=== PATIENT | female | born 1940 | race Caucasian/White ===

== ENCOUNTER 2017-07-07 21:29 | Observation (INO) ==
[2017-07-08] MEDS ORDERED: Ipratropium/Albuterol Neb 3 ML IH PRN (00:10)
[2017-07-08] MEDS: Acetaminophen 325 MG TABLET PO PRN ×2 (01:07→20:00)
[2017-07-08] MEDS ORDERED: Albuterol 2.5 MG/3 ML NEBULIZER IH PRN (02:12)
[2017-07-08] MEDS ORDERED: Naloxone 0.4 MG/ML INJ IVP PRN (02:12)
--- NOTE | 2017-07-08 02:22 | Internal Med History&Physical ---
Date of Encounter: 07/08/17 Time of Encounter: 01:30 Internal Medicine - H&P: HPI Chief complaint: cough, wheeze, SOB Admitted From: Hospital to Hospital Transfer Plans for Post Hospital Care: Home History of present illness: Ms. Correia is a 77 year old female who presented to [facility] ER tonight with complaints of coughing, wheezing, and shortness of breath. She was found to have acute exacerbation of COPD and was admitted to hospitalist service here at [facility]. Upon my assessment of the patient, she is audibly wheezing and having some mild respiratory distress. She feels a little better than her initial presentation in the ER. She states she has been dealing with this COPD flareup for the last 3-4 weeks and has been on 3 rounds of Levaquin antibiotics without relief. Her last hospital stay for COPD was about a year and a half ago. She states she has had some subjective fevers but no chills or night sweats. She has had pronounced coughing and wheezing and worsening dyspnea. Despite her severe COPD , she continues to smoke every day. She denies any chest pain, but she has had some palpitations and racing heart beats. She denies any recent ill contacts. Past Med Surg Social Fam HX - Past Medical History Attestation: Yes The following information was validated with the patient. Source: patient, old records reviewed Medical history: COPD, hyperlipidemia, hypertension Psychiatric history: no psych history - Past Surgical History Surgical History: hysterectomy - Social History Smoking Status: Current every day smoker Packs per day: 1 Smokeless Tobacco Status: No Alcohol use: none Drug use: none Current living situation: Home - Independent Activity Level: Independent ambulation Recent Out of Country Travel Within the Last 8 Weeks: No - Family History Mother History Unknown: Yes Father History Unknown: Yes - Additional Family History Additional family history: unknown; patient adopted Internal Medicine - H&P: Meds Albuterol Neb [Proventil Neb] 2.5 mg IH TID 07/07/17 [History] Albuterol Sulfate [Proair Hfa] 2 puff IH Q4H PRN 07/07/17 [History] Amlodipine Besylate 5 mg PO DAILY 07/07/17 [History] Atenolol/Chlorthalidone [Tenoretic 50 Tablet] 1 each PO DAILY 07/07/17 [History] Atorvastatin Calcium [Lipitor] 20 mg PO DAILY 07/07/17 [History] Butalb/Acetaminophen/Caffeine [Fioricet 50-300-40 mg Capsule] 1 each PO Q4H PRN 07/07/17 [History] Calcium/Vit B12/FA/Pyridoxine [Folic Acid-Vit B6-Vit B12 Tab] 1 each PO DAILY [History] Diclofenac Sodium [Voltaren] 75 mg PO DAILY 07/07/17 [History] Gabapentin [Neurontin] 300 mg PO HS 07/07/17 [History] Ipratropium Neb [Atrovent Neb] 0.5 mg IH QID 07/07/17 [History] Lisinopril [Zestril] 40 mg PO DAILY 07/07/17 [History] Roflumilast [Daliresp] 500 mcg PO DAILY 07/07/17 [History] Umeclidinium Brm/Vilanterol Tr [Anoro Ellipta 62.5-25 Mcg INH] 1 each IH DAILY 07/07/17 [History] Zolpidem Tartrate [Edluar] 10 mg SL HS PRN 07/07/17 [History] cloNIDine HCl [Clonidine HCl] 0.3 mg PO DAILY 07/07/17 [History] 3 Allergy/AdvReac Type Severity Reaction Status Date / Time Sulfa (Sulfonamide Allergy See Verified 07/07/17 19:07 Antibiotics) Comments ciprofloxacin [From Cipro] AdvReac Vomiting Verified 07/07/17 19:07 doxycycline AdvReac Vomiting Verified 07/07/17 19:07 - Constitutional Constitutional: fever(s), no chills, no night sweats - EENT Eyes: no blurry vision, no change in vision Ears: no ear pain, no tinnitus Nose, mouth and throat: no nasal congestion, no sinus pressure, no sore throat - Cardiovascular Cardiovascular ROS IM: dyspnea, dyspnea on exertion, no chest pain, no edema, no orthopnea, no palpitations, no syncope - Respiratory Respiratory: cough, dyspnea, dyspnea on exertion, wheezing, chest congestion, excessive phlegm production, change in phlegm color, no hemoptysis - Gastrointestinal Gastrointestinal: no abdominal pain, no diarrhea, no hematemesis, no hematochezia, no melena, no nausea, no vomiting - Genitourinary Genitourinary: no dysuria, no flank pain, no hematuria - Musculoskeletal Musculoskeletal ROS IM: no arthralgias, no back pain, no joint swelling - Integumentary Integumentary IM: no rash, no jaundice - Neurological Neurological ROS: no disequilibrium, no dizziness, no focal weakness, no frequent falls, no headache(s) - Psychiatric Psychiatric: no anxiety, no depression - Endocrine Endocrine IM: no polydipsia, no polyuria - Hematologic/Lymphatic Hematologic/Lymphatic: no easy bruising, no lymphadenopathy - Allergic/Immunologic Allergic/Immunologic: wheezing, no GI upset with certain foods - Constitutional Vitals: Temp Pulse Resp BP Pulse Ox 97.9 F 79 18 146/87 96 07/08/17 00:00 07/08/17 00:00 07/08/17 01:11 07/08/17 00:00 07/08/17 01:11 General appearance: Present: cooperative, mild distress, A&O X 3, pleasant, answers questions appropriately - Head Head exam: Present: normal inspection - Eye Eye exam: Present: EOMI, normal appearance, PERRL. Absent: scleral icterus Pupils: Present: normal accommodation - ENT ENT exam: Present: mucous membranes dry, normal exam, normal oropharynx - Neck Neck exam general surgery: Present: full ROM, supple. Absent: tenderness, nuchal rigidity, thyromegaly - Respiratory Respiratory exam: Present: accessory muscle use, decreased breath sounds, prolonged expiratory phase, respiratory distress (mild ), rhonchi, wheezes. Absent: chest wall tenderness, rales - Cardiovascular Cardiovascular exam: Present: RRR, +S1, +S2. Absent: diastolic murmur, systolic murmur - GI/Abdominal GI/Abdominal exam: Present: normal bowel sounds, soft. Absent: hepatomegaly, splenomegaly, tenderness - Extremities Exam Extremities exam: Present: full ROM, normal capillary refill, warm, radial pulses palpable and symmetrical. Absent: calf tenderness, joint swelling, pedal edema, tenderness - Back Exam Back exam: Absent: CVA tenderness (L), CVA tenderness (R) - Neurological Exam Neurological exam: Present: alert, CN II-XII intact, oriented X3, no focal deficits - Psychiatric Psychiatric exam: Present: normal affect, normal mood - Skin Skin exam: Present: dry, warm. Absent: rash Internal Med - H&P Results - Labs Labs: I reviewed her labs a [facility], and they include the following: WBC 16.1 Hemoglobin 16.6 Hematocrit 45.6 Platelets 319 Sodium 126 Potassium 3.1 Chloride 84 Carbon dioxide 33 BUN 21 Creatinine 1.14 Chest x-ray negative - Diagnostic Studies Chest x-ray Status: image reviewed by me (negative) - Assessment and plan (1) Acute exacerbation of chronic obstructive airways disease Current Visit: Yes Status: Acute Assessment and plan: 1. Will schedule DuoNeb aerosols and PRN albuterol aerosols. 2. Oxygen as needed. 3. Patient refuses steroids due to side effects -- insomnia. 4. Will place on Rocephin and Zithromax. 5. Monitor clinically and adjust meds as necessary. (2) Hyponatremia Current Visit: Yes Status: Acute Assessment and plan: 1. Suspect this is due to Chlorthalidone diuretic. 2. Hold diuretics and start IVF. 3. Monitor sodium levels closely. 4. If not improving, may need to obtain Chest CT to rule out lung cancer as she may in fact have SIADH. (3) DVT prophylaxis Current Visit: Yes Status: Acute Assessment and plan: 1. Heparin SQ.
[2017-07-08] MEDS: 0.9 % Sodium Chloride w KCl 20 MEQ/1,000 ML MLS IVC SCH ×2 (02:57→15:15)
[2017-07-08] MEDS: Azithromycin 500 MG in D5% in Water 250 ML IVPB SCH (02:58)
[2017-07-08] MEDS: Ondansetron 4 MG/2 ML VIAL IVP PRN (03:36)
[2017-07-08] MEDS: Ipratropium/Albuterol Neb 3 ML IH SCH ×6 (03:59→23:30)
[2017-07-08 04:17] LABS: Basophils % 0.2 %; Eosinophils # 0.1 K/mcL (0.0-0.6); Eosinophils % 0.8 %; Hematocrit 43.8 % (35.3-44.9); Hemoglobin 15.5 g/dL (11.5-15.4); Immature Granulocytes % 0.8 % (0-4); Lymphocytes # 1.7 K/mcL (0.6-4.6); Lymphocytes % 11.7 %; Mean Corpuscular HGB Conc 35.4 g/dL (31.6-35.5); Mean Corpuscular Hemoglobin 31.4 pg (28.0-33.3); Mean Corpuscular Volume 88.8 fL (83.0-100.0); Mean Platelet Volume 10.9 fL (9.4-12.4); Monocytes # 1.2 K/mcL (0.0-1.3); Neutrophils # 11.7 K/mcL (1.6-8.9); Platelet Count 272 K/mcL (140-400); Red Blood Count 4.93 M/mcL (3.82-4.97); Red Cell Distribution Width 13.2 % (11.5-14.5); Segmented Neutrophils % 78.5 %
[2017-07-08 04:33] LABS: Albumin 3.7 g/dL (3.5-5.7); Albumin/Globulin Ratio 1.8 (1.1-2.2); Bilirubin,Total 0.8 mg/dL (0.3-1.0); Calcium 8.7 mg/dL (8.6-10.3); Globulin 2.1 g/dL (2.4-3.5); Magnesium 1.1 mg/dL (1.6-2.6); Total Protein 5.8 g/dL (6.4-8.9)
[2017-07-08] MEDS: *HR* Heparin 5,000 UNIT/ML VIAL SQ SCH ×2 (06:20→16:58)
[2017-07-08] MEDS: Nicotine 21 MG PATCH.TD24 TD SCH (07:37)
[2017-07-08] MEDS: cefTRIAXone 1,000 MG in Water for inj. (sterile) 20 ML 10 ML IVP SCH (07:38)
--- NOTE | 2017-07-08 11:36 | Event Note ---
Date of Encounter: 07/08/17 Time of Encounter: 11:33 This patient was seen earlier in the morning by hospitalist. Presently patient denies any chest pain or shortness of breath. States her breathing is much improved. She continues to have hyponatremia we will recheck in trend. Continue with 0.9 normal saline IV obtained urine sodium urine osmole. No improvement will obtain CT of chest to rule out malignancy. We will consult PT OT as well as social human services assistants. Continuous pulse ox monitoring
[2017-07-08 13:05] LABS: Calcium 8.7 mg/dL (8.6-10.3); Potassium 3.6 mEq/L (3.5-5.1)
[2017-07-09] MEDS: Acetaminophen 325 MG TABLET PO PRN (02:56)
[2017-07-09] MEDS: Azithromycin 500 MG in D5% in Water 250 ML IVPB SCH (02:57)
[2017-07-09] MEDS: Ondansetron 4 MG/2 ML VIAL IVP PRN (03:29)
[2017-07-09] MEDS: Ipratropium/Albuterol Neb 3 ML IH SCH ×6 (03:41→23:44)
[2017-07-09] MEDS: *HR* Heparin 5,000 UNIT/ML VIAL SQ SCH ×2 (04:45→17:16)
[2017-07-09 05:18] LABS: Basophils % 0.3 %; Eosinophils # 0.2 K/mcL (0.0-0.6); Eosinophils % 1.4 %; Hematocrit 40.8 % (35.3-44.9); Hemoglobin 14.1 g/dL (11.5-15.4); Immature Granulocytes % 0.8 % (0-4); Lymphocytes # 1.8 K/mcL (0.6-4.6); Lymphocytes % 16.6 %; Mean Corpuscular HGB Conc 34.6 g/dL (31.6-35.5); Mean Corpuscular Hemoglobin 31.3 pg (28.0-33.3); Mean Corpuscular Volume 90.5 fL (83.0-100.0); Mean Platelet Volume 11.3 fL (9.4-12.4); Monocytes # 1.1 K/mcL (0.0-1.3); Monocytes % 10.5 %; Neutrophils # 7.6 K/mcL (1.6-8.9); Platelet Count 219 K/mcL (140-400); Red Blood Count 4.51 M/mcL (3.82-4.97); Red Cell Distribution Width 13.6 % (11.5-14.5); Segmented Neutrophils % 70.4 %
[2017-07-09 05:44] LABS: BUN/Creatinine Ratio 19 (6-26); Blood Urea Nitrogen 18 mg/dL (8-23); Calcium 8.6 mg/dL (8.6-10.3); Carbon Dioxide 31 mEq/L (23-29); Chloride 95 mEq/L (98-107); Glucose 88 mg/dL (70-105); Osmolality,Calculated 277 (280-300); Potassium 3.2 mEq/L (3.5-5.1); Sodium 133 mEq/L (136-145); eGFR For African Americans > 60 (> 60); eGFR For Non-African Americans 57 (> 60)
[2017-07-09] MEDS: Nicotine 21 MG PATCH.TD24 TD SCH (08:51)
[2017-07-09] MEDS: cefTRIAXone 1,000 MG in Water for inj. (sterile) 20 ML 10 ML IVP SCH (08:52)
[2017-07-09] MEDS: amLODIPine 5 MG TABLET PO SCH (08:53)
[2017-07-09] MEDS: cloNIDine HCl 0.1 MG TABLET PO SCH (08:53)
[2017-07-09] MEDS: Lisinopril 20 MG TABLET PO SCH (08:53)
[2017-07-09] MEDS ORDERED: Acetaminophen/Butalbital/CaffeineTABLET PO PRN (09:36)
[2017-07-09 15:48] LABS: BUN/Creatinine Ratio 13 (6-26); Blood Urea Nitrogen 14 mg/dL (8-23); Calcium 8.5 mg/dL (8.6-10.3); Carbon Dioxide 34 mEq/L (23-29); Chloride 93 mEq/L (98-107); Glucose 100 mg/dL (70-105); Osmolality,Calculated 275 (280-300); Potassium 3.3 mEq/L (3.5-5.1); Sodium 132 mEq/L (136-145); eGFR For African Americans > 60 (> 60); eGFR For Non-African Americans 51 (> 60)
--- NOTE | 2017-07-09 16:01 | Internal Med Progress Note ---
Date of Encounter: 07/09/17 Time of Encounter: 15:55 - Assessment and plan (1) Acute exacerbation of chronic obstructive airways disease Current Visit: Yes Status: Acute Assessment and plan: 1. Will schedule DuoNeb aerosols and PRN albuterol aerosols. 2. Oxygen as needed. 3. Patient refuses steroids due to side effects -- insomnia. 4. Will place on Rocephin and Zithromax. 5. Patient is improving-no wheezing at this time-anticipate discharge in a.m. (2) Hyponatremia Current Visit: Yes Status: Acute Assessment and plan: 1. Suspect this is due to Chlorthalidone diuretic-this appears to be chronic when trended it appears to be low since last year 2. Hold diuretic for now.-Sodium slowly improving 3. Monitor sodium levels closely. (3) DVT prophylaxis Current Visit: Yes Status: Acute Assessment and plan: 1. Heparin SQ. (4) Hypokalemia Current Visit: Yes Status: Acute Assessment and plan: Potassium 3.2 we will replace and recheck Cardiac monitoring (5) Hypomagnesemia Current Visit: Yes Status: Acute Assessment and plan: Magnesium 1.2 we will replace and recheck - Time Spent With Patient Total time spent is greater than 50% in coordination of care (as documented) at patient's floor/unit and/or counseling patient: - Subjective Interval history: I did examine the patient at bedside. She does not appear to be in any respiratory distress. She denies any chest pain or shortness of breath this time. I did review treatment plan with the patient who verbalized understanding. - Constitutional Vitals: Temp Pulse Resp BP Pulse Ox 97.7 F 88 18 108/71 100 07/09/17 11:27 07/09/17 11:27 07/09/17 11:27 07/09/17 13:13 07/09/17 11:27 General appearance: Present: cooperative, mild distress, A&O X 3, pleasant, answers questions appropriately - Head Head exam: Present: atraumatic, normocephalic - Eye Eye exam: Present: PERRL, conjuntiva pink, sclera anicteric Pupils: Present: PERRL - Neck Neck exam general surgery: Present: supple, trachea midline. Absent: lymphadenopathy - Respiratory Respiratory exam: Present: CTAB. Absent: accessory muscle use, rales, rhonchi, wheezes - Cardiovascular Cardiovascular exam: Present: RRR, +S1, +S2. Absent: diastolic murmur, gallop, rubs, systolic murmur - GI/Abdominal GI/Abdominal exam: Present: normal bowel sounds, soft, no peritoneal signs. Absent: distended, tenderness - Extremities Exam Extremities exam: Present: warm, radial pulses palpable and symmetrical. Absent : calf tenderness, cyanotic, pedal edema - Neurological Exam Neurological exam: Present: CN II-XII intact, oriented X3, no focal deficits. Absent: pronater drift, facial droop, speech deficit - Skin Skin exam: Present: dry, intact Internal Medicine: Result - Labs CBC & Chem 7: 07/09/17 04:10 07/09/17 15:13 Labs: Short CBC 07/09/17 Range/Units 04:10 WBC 10.7 (4.3-11.1) K/mcL Hgb 14.1 (11.5-15.4) g/dL Hct 40.8 (35.3-44.9) % Plt Count 219 (140-400) K/mcL Neutrophils # 7.6 (1.6-8.9) K/mcL BMP 07/08/17 07/09/17 07/09/17 17:45 00:00 04:10 Sodium 132 L 132 L 133 L Potassium 3.2 L Chloride 95 L Carbon Dioxide 31 H BUN 18 Creatinine 0.95 Glucose 88 Calcium 8.6 07/09/17 15:13 Sodium 132 L Potassium 3.3 L Chloride 93 L Carbon Dioxide 34 H BUN 14 Creatinine 1.05 Glucose 100 Calcium 8.5 L Consult Discharge Plan - Plan Referrals: Abbey Muñoz, QUALITY AUDITOR [Primary Care Provider] -
[2017-07-09] MEDS ORDERED: Gabapentin 300 MG CAPSULE PO SCH (21:00)
[2017-07-10] MEDS: Ipratropium/Albuterol Neb 3 ML IH SCH ×3 (03:13→11:06)
[2017-07-10] MEDS: Azithromycin 500 MG in D5% in Water 250 ML IVPB SCH (03:51)
[2017-07-10] MEDS: Ondansetron 4 MG/2 ML VIAL IVP PRN (03:51)
[2017-07-10] MEDS: *HR* Heparin 5,000 UNIT/ML VIAL SQ SCH (05:08)
[2017-07-10 05:53] LABS: Basophils % 0.4 %; Eosinophils # 0.2 K/mcL (0.0-0.6); Eosinophils % 2.1 %; Hematocrit 38.4 % (35.3-44.9); Hemoglobin 12.7 g/dL (11.5-15.4); Immature Granulocytes % 1.2 % (0-4); Lymphocytes # 2.1 K/mcL (0.6-4.6); Mean Corpuscular HGB Conc 33.1 g/dL (31.6-35.5); Mean Corpuscular Hemoglobin 30.9 pg (28.0-33.3); Mean Corpuscular Volume 93.4 fL (83.0-100.0); Mean Platelet Volume 10.9 fL (9.4-12.4); Monocytes # 1.3 K/mcL (0.0-1.3); Monocytes % 11.6 %; Neutrophils # 7.2 K/mcL (1.6-8.9); Platelet Count 203 K/mcL (140-400); Red Blood Count 4.11 M/mcL (3.82-4.97); Red Cell Distribution Width 13.9 % (11.5-14.5); Segmented Neutrophils % 65.7 %
[2017-07-10 06:13] LABS: BUN/Creatinine Ratio 17 (6-26); Blood Urea Nitrogen 15 mg/dL (8-23); Calcium 8.4 mg/dL (8.6-10.3); Carbon Dioxide 33 mEq/L (23-29); Chloride 97 mEq/L (98-107); Glucose 124 mg/dL (70-105); Magnesium 1.6 mg/dL (1.6-2.6); Osmolality,Calculated 278 (280-300); Potassium 3.9 mEq/L (3.5-5.1); Sodium 133 mEq/L (136-145); eGFR For African Americans > 60 (> 60); eGFR For Non-African Americans > 60 (> 60)
[2017-07-10 07:00] VITALS: BP 147/83
--- NOTE | 2017-07-10 08:58 | Discharge Summary ---
- NOTES TO OUTPATIENT PROVIDER Notes to Outpatient Provider: SHe did have low Na and potassium,mag. cont to monitor Chem 7 Orders not resulted at time of discharge: Pending orders 07/08/17 02:12 ECG 12 lead ECG [ECG] Routine Date of Encounter: 07/10/17 Time of Encounter: 08:52 - Discharge Diagnosis (1) Acute exacerbation of chronic obstructive airways disease Priority: Primary Status: Acute (2) Hyponatremia Priority: Secondary Status: Acute (3) Hypokalemia Priority: Secondary Status: Acute (4) Hypomagnesemia Priority: Secondary Status: Acute Hospital course: Ms. Correia is a 77 year old female past medical history of COPD hyperlipidemia hypertension. Patient presented to [facility] ER with complaints of coughing wheezing shortness of breath she was found to be in acute exacerbation of COPD. Patient was previously treated approximately 3-4 weeks ago and has been on 3 rounds of Levaquin without relief. She continues to smoke and has home oxygen. She was transferred to [facility] for further treatment. Chest x-ray showed moderate to severe emphysema changes otherwise clear. No leukocytosis patient was afebrile patient was started on Rocephin and azithromycin she was given bronchodilators patient declined steroid use-because it gives her insomnia. Her oxygen saturation has improved respiratory state as well has improved she does continue to have an occasional expiratory wheeze no cough or fever. Patient states she feels better/ and is at her baseline. She does have oxygen as well as nebulizer treatments at home During admission and was noted that her sodium level was 126 potassium was 3.1. She is on diuretics chronically which we held she was given some IV fluids and her sodium returned to baseline. It appears that patient is chronically hyponatremic. We also replaced her potassium as well as magnesium which both returned to baseline. Advised patient to follow- up with PCP encouraged patient to stop smoking offered smoking cessation aids. Patient is requesting nicotine patch which we will send home with a prescription. I will send the patient home with azithromycin for 3 more days to complete a 5 day course. I answered the patient's questions and patient verbalized understanding about follow-ups and medications. The patient is hemodynamically stable and ready for discharge. - Time Spent with Patient Total time spent providing and/or coordinating discharge services: - Discharge Medications Prescriptions: Azithromycin [Zithromax Tri-Carlo] 500 mg PO DAILY 3 Days #3 tablet Nicotine Patch [Nicoderm] 14 mg TD DAILY #14 patch.[email or web address] Home Medications: Albuterol Neb [Proventil Neb] 2.5 mg IH TID 07/07/17 [History] Albuterol Sulfate [Proair Hfa] 2 puff IH Q4H PRN 07/07/17 [History] Amlodipine Besylate 5 mg PO DAILY 07/07/17 [History] Atenolol/Chlorthalidone [Tenoretic 50 Tablet] 1 each PO DAILY 07/07/17 [History] Atorvastatin Calcium [Lipitor] 20 mg PO DAILY 07/07/17 [History] Butalb/Acetaminophen/Caffeine [Fioricet 50-300-40 mg Capsule] 1 each PO Q4H PRN 07/07/17 [History] Calcium/Vit B12/FA/Pyridoxine [Folic Acid-Vit B6-Vit B12 Tab] 1 each PO DAILY [History] Diclofenac Sodium [Voltaren] 75 mg PO DAILY 07/07/17 [History] Gabapentin [Neurontin] 300 mg PO HS 07/07/17 [History] Ipratropium Neb [Atrovent Neb] 0.5 mg IH QID 07/07/17 [History] Lisinopril [Zestril] 40 mg PO DAILY 07/07/17 [History] Roflumilast [Daliresp] 500 mcg PO DAILY 07/07/17 [History] Umeclidinium Brm/Vilanterol Tr [Anoro Ellipta 62.5-25 Mcg INH] 1 each IH DAILY 07/07/17 [History] cloNIDine HCl [Clonidine HCl] 0.3 mg PO DAILY 07/07/17 [History] Zolpidem [Ambien] 10 mg PO HS PRN 07/08/17 [History] Azithromycin [Zithromax Tri-Carlo] 500 mg PO DAILY 3 Days #3 tablet 07/10/17 [Rx] Nicotine Patch [Nicoderm] 14 mg TD DAILY #14 patch.td24 07/10/17 [Rx] Allergies/Adverse Reactions: 3 Allergy/AdvReac Type Severity Reaction Status Date / Time Sulfa (Sulfonamide Allergy See Verified 07/07/17 19:07 Antibiotics) Comments ciprofloxacin [From Cipro] AdvReac Vomiting Verified 07/07/17 19:07 doxycycline AdvReac Vomiting Verified 07/07/17 19:07 Date of admission: 07/07/17 23:29 Primary care physician: Abbey Muñoz CNP Consults: 07/08/17 18:50 Consult to Water Maintenance Supervisor [CONS] Routine Reason for SW Consult: multiple falls. PT/OT consulted. please follow Discharging clinician: Patricia Parker Anticipated date of discharge: 07/10/17 - Constitutional Vitals: Temp Pulse Resp BP Pulse Ox 98.2 F 108 16 147/83 97 07/10/17 06:58 07/10/17 06:58 07/10/17 07:27 07/10/17 06:58 07/10/17 07:27 General appearance: Present: cooperative, mild distress, A&O X 3, pleasant, answers questions appropriately - Head Head exam: Present: atraumatic, normocephalic - Eye Eye exam: Present: PERRL, conjuntiva pink, sclera anicteric Pupils: Present: PERRL - Neck Neck exam general surgery: Present: supple, trachea midline. Absent: lymphadenopathy - Respiratory Respiratory exam: Present: wheezes. Absent: accessory muscle use, rales, rhonchi Additional comments: Faint expiratory wheeze - Cardiovascular Cardiovascular exam: Present: RRR, +S1, +S2. Absent: diastolic murmur, gallop, rubs, systolic murmur - GI/Abdominal GI/Abdominal exam: Present: normal bowel sounds, soft, no peritoneal signs. Absent: distended, tenderness - Extremities Exam Extremities exam: Present: warm, radial pulses palpable and symmetrical. Absent : calf tenderness, cyanotic, pedal edema - Neurological Exam Neurological exam: Present: CN II-XII intact, oriented X3, no focal deficits. Absent: pronater drift, facial droop, speech deficit - Skin Skin exam: Present: dry, intact - Patient Status Disposition: Home, Self-Care Condition: Fair Functional capacity at discharge: independent ambulation Overall status at discharge: patient is back to baseline - Discharge Instructions Instructions: Chronic Obstructive Pulmonary Disease (DC) Follow Up With: Abbey Muñoz CNP [Primary Care Provider] - - Diet and Activity Activity: increase activity as tolerated, wear oxygen at all times Diet: advance to your usual diet
[2017-07-10] MEDS ORDERED: (Roflumilast [Daliresp] 500 MCG) PO SCH (09:00)
[2017-07-10] MEDS ORDERED: (Umeclidinium Brm/Vilanterol Tr [Anoro Ellipta 62.5-2 IH SCH (09:00)
[2017-07-10] MEDS: cefTRIAXone 1,000 MG in Water for inj. (sterile) 20 ML 10 ML IVP SCH (09:19)
[2017-07-10] MEDS: cloNIDine HCl 0.1 MG TABLET PO SCH (09:20)
[2017-07-10] MEDS: Nicotine 21 MG PATCH.TD24 TD SCH (09:20)
[2017-07-10] MEDS: Lisinopril 20 MG TABLET PO SCH (09:20)
[2017-07-10] MEDS: amLODIPine 5 MG TABLET PO SCH (09:20)
== END 2017-07-10 13:15 | disposition home or self-care (01) ==
LOC: 3BNU
PROVIDERS: ADMIT Internal Medicine; ATTEND Internal Medicine